=== PATIENT | male | born 1960 | race Caucasian/White ===

== ENCOUNTER 2016-08-24 06:33 | Emergency (ER) | payer OTHER ==
[~2016-08-24] VITALS: Ht 180.3 cm; Wt 86.4 kg
[~2016-08-24 06:33] MED LIST: ASPI-628 PO; ATRV10T PO; CLOP75TA28 PO; NITR0.4T SL
[2016-08-24 06:45] VITALS: BP 145/64; PULSE 45; RESP 12; O2SAT 100
--- NOTE | 2016-08-24 06:56 | ED.REPORT ---
HPI-Back Pain 40 and Over Date of Service Aug 24, 2016 ED Provider: Frank Philip DO Patient is a 56 year old male with a history of CAD with stent placement, mild spinal stenosis and lumbar radiculopathy who presents to the ED via EMS due to back pain onset 0200 this morning. Associated symptoms include pain that radiates into his right leg, numbness in his toes, chills, diaphoresis, lightheadedness, nausea and dizziness since yesterday. He denies fever, weakness , chest pain, shortness of breath, abdominal pain, headache or urinary symptoms. Patient describes the pain as sharp and throbbing and rates the pain as a 10/10. He describes the leg pain as dull. The patient reports that he tried using heat but it worsened his symptoms. He states that he has never experienced these symptoms before. Patient denies any recent traumas or falls. Nursing Notes Stated Complaint: LOW BACK PAIN/DIZZY Chief Complaint: Back Pain or Injury Nursing Notes Reviewed: Yes Allergies: Coded Allergies: No Known Allergies (Unverified , 08/24/16) Scheduled Aspirin (Aspir 81) 81 Mg Tablet.dr 81 MG PO DAILY Atorvastatin (Lipitor) 10 Mg Tab 20 MG PO DAILY Clopidogrel (Clopidogrel) 75 Mg Tablet 75 MG PO DAILY Metoprolol Tartrate (Metoprolol Tartrate) 25 Mg Tablet 12.5 MG PO BID Scheduled PRN Cyclobenzaprine (Cyclobenzaprine) 10 Mg Tablet 10 MG PO TID PRN PRN Spasm Nitroglycerin SL (Nitrostat) 0.4 Mg Tab.subl 0.4 MG SL Q5MIN PRN PRN For Chest Pain Zolpidem (Ambien) 10 Mg Tablet 10 MG PO HS PRN PRN For Insomnia half tab for sleep oxyCODONE-Acetaminophen 5-325 mg (oxyCODONE-Acetaminophen 5-325 mg) 1 Each Tablet 2 TAB PO Q6H PRN PRN For Pain General Time Seen by MD: 06:45 Chief Complaint Back pain Hx Obtained From: Patient Arrived By: Ambulance Sudden in Onset?: Yes Onset Occurred: 5 - 8 hours ago Symptom Duration: Since onset Caused by: Spontaneous/no mechanism Location: : Perispinal lumbar Quality: Sharp, Throbbing Radiation: : Right leg above knee Severity: Current: Pain level 10 out of 10 Associated with: Reports: Nausea, Denies: Fever Recent Healthcare: No recent doctor visit, No recent hospitalization Similar Sx Previous: No Past Medical History Past Medical History dyslipidemia stent placement spinal stenosis lumbar radiculopathy Reports: Coronary artery disease Past Surgical History heart catheterization Smoking History Never Smoker Social History Alcohol Use: "Social" Drug Use: Denies drug use Other Social History: Good social support, Ambulatory Status Independent Review of Systems Constitutional: Reports: Chills, Denies: Fever Respiratory: Denies: Non-productive cough, Pleuritic pain, Shortness of breath Cardiovascular: Denies: Chest pain GI: Reports: Nausea, Denies: Abdominal pain Male: Denies Dysuria, Denies Hematuria, Denies Incontinence Musculoskeletal: Reports: Back pain, Extremity pain (right leg) Neurologic: Reports: Dizziness, Lightheaded, Numbness (in his toes), Spinning sensation, Denies: Headache, Problem walking, Weakness Complete sys rev & neg: except as marked. Skin: Reports Diaphoresis, Denies Rash Physical Exam Initial Vital Signs Vital Signs (First) Date Time Temp Pulse Resp B/P Pulse Ox O2 Delivery O2 Flow Rate FiO2 08/24/16 06:45 36.9 45 12 145/64 100 Room Air Initial VS: Reviewed General/Constitutional: Awake, Alert Respiratory / Chest: Atraumatic, Breath sounds NL, Breath sounds = bilat, No respiratory distress Cardiovascular: Regular rhythm, Heart sounds NL, No murmurs Heart Rate / Rhythm: Positive: Bradycardia Abdomen: Atraumatic, Soft, Non-tender Back: Atraumatic, Full range of motion, No midline vertebral tend, Straight leg raise neg, No CVA tenderness pain at the right si joint L4/L5 distribution Neurologic: Oriented X3, Speech NL, No motor deficits, No sensory deficits Lower Extremity / Pelvis / MS: Atraumatic, Full range of motion bilateral numbness in the medial calves Skin: Atraumatic, Color NL, No rash, Warm, Dry Head / Eyes: Atraumatic, Normocephalic, PERRL, EOMI ENT: Atraumatic, Airway patent, Mucous membranes moist Psychiatric: Affect NL, Mood NL Interpretation & Diagnostics Interpretation & Diagnostics: LUMBAR MRI: IMPRESSION: 1. Multilevel degenerative disease. 2. Multilevel facet arthropathy. 3. No central stenosis. 4. Mild bilateral L2-L3, L4-L5 and L5-S1 neural foraminal narrowing. 5. L4-L5 and L5-S1 disc annulus fissures. 6. No neural impingement. Dictated by: Mary Gutierrez MD, PhD on 08/24/2016 at 11:45 Approved by: Mary Gutierrez MD, PhD on 08/24/2016 at 11:49 Lab Results Interpretation Result Diagram: 08/24/16 0722 08/24/16 0722 Test 08/24/16 07:22 08/24/16 07:36 White Blood Count 6.6th/mm3 (3.8-10.1) Red Blood Count 4.65mil/mm3 (4.40-5.80) Hemoglobin 14.7g/dL (13.8-17.2) Hematocrit 40.6% (41.0-50.0) Mean Corpuscular Volume 87.3fL (81-100) Mean Corpuscular Hemoglobin 31.6pg (27.0-35.0) Mean Corpuscular Hemoglobin Concent 36.2% (32.0-37.0) Red Cell Distribution Width 11.6% (12.3-15.4) Platelet Count 221bil/L (150-400) Neutrophils (%) (Auto) 64.1% (40-74) Lymphocytes (%) (Auto) 30.5% (14-46) Monocytes (%) (Auto) 4.7% (4-12) Eosinophils (%) (Auto) 0.2% (0-5) Basophils (%) (Auto) 0.3% (0-3) Sodium Level 137mEq/L (134-144) Potassium Level 4.0mEq/L (3.5-5.2) Chloride Level 99mEq/L (97-108) Carbon Dioxide Level 25mmol/L (18-29) Blood Urea Nitrogen 21mg/dL (6-24) Creatinine 0.84mg/dL (0.76-1.27) Estimat Glomerular Filtration Rate 100mL/min (>59) Glucose Level 130mg/dL (60-99) Calcium Level 9.2mg/dL (8.5-10.1) Magnesium Level 1.9mg/dL (1.6-2.6) Total Bilirubin 0.5mg/dL (0.0-1.2) Aspartate Amino Transf (AST/SGOT) 21U/L (0-50) Alanine Aminotransferase (ALT/SGPT) 27U/L (0-44) Alkaline Phosphatase 88U/L (25-150) Troponin T 0.010ug/L (0.0-0.011) Total Protein 6.8g/dL (6.4-8.4) Albumin 4.2g/dL (3.4-5.0) Hold Urine Received (Received) ECG Interpretation ECG Interpretation: sinus bradycardia, rate [address] changes unchanged from previous EKG on 06/21/14 Time: 07:02 Interpreted by: ED physician X-Ray Chest Interpretation Chest Xray Interpretation: IMPRESSION: 1. No acute cardiopulmonary disease. Dictated by: Eleuterio Hernandez M.D. on 08/24/2016 at 8:51 Approved by: Eleuterio Hernandez M.D. on 08/24/2016 at 8:52 View: Portable, 1 view Interpretation / Wet Read by: Interpret - Radiologist X-Ray Interpretation Xray Interpretation: IMPRESSION: Lower lumbar spine disc degeneration, with normal overall bony alignment. Dictated by: Jose Costello M.D. on 08/24/2016 at 10:04 Approved by: Jose Costello M.D. on 08/24/2016 at 10:06 Interpretation / Wet Read by: Interpret - Radiologist Re-Eval/Medical Decision Med Decision/Clinical Course 56 yo male with h/o CAD presents with sudden onset LBP at 0200 this AM while urinating. Pain is at the R SI joint and radiates down his entire RLE in no real dermatomal pattern. Pain was not reproducible with palpation and bilat straight leg raise tests were negative. Pt was able to stand on his toes bilat but unable to stand on his R heel due to pain and ?weakness. He had subjective numness in and L5 distribution on the right. RLE pulses were palpatble and normal. Skin was warm and dry and there was no leg swelling. Pt has a remote history of LBP and 2005 Lumbar MRI was reviewed showing mild disk buldge at L4- L5 and L5-S1. Pt notes he has not had pain like this before and also that he does not take chronic pain meds. Pain was briefly controlled by fentanyl given by EMS en route. Here Toradol, Flexeril and Percocet 5/325 did not relieve his pain. Ativan was given for possible muscle spasm and anxiety but did not improve his symptoms. Urine dip was completely normal without blood or sign of infection. He had no abdominal pain and was nontender. Lumbar Xray showed significant disk height loss at L5-S1. Pt had severe pain while standing for xray and was completely unable to walk. He required multiple doses of IV Dilaudid to just start to take the edge off his pain. He had no fever or chills and VS showed only mild hypertension and his baseline bradycardia in the upper 40s/low 50s on his longstanding metroprolol dose. . WBC was normal. ACS was ruled out with normal EKG and negative troponin. Given his severe refractory pain and his inability to ambulate as well as the significant disk height loss at L5-S1 MRI was performed showing no neural impingement and L4-5 and L5S1 disc annulus fissures. I explained that we had ruled out dangerous causes for his pain and d/c'ed him home with Percocet and Flexeril with close followup with his PCP and parameters of when to return should his symptoms worsen. Source of Hx: Old records Re-Evaluation/Progress #1: Time of Eval: 07:45 Re-Evaluation/Progress Note: Patient rates the pain as a 7/10 now. Re-Evaluation/Progress #2: Time of Eval: 08:30 Re-Evaluation/Progress Note: Patient reports that the pain medication helped but he is now starting to feel sharp pain again. Re-Evaluation/Progress #3: Time of Eval: 09:14 Re-Evaluation/Progress Note: Discussed results and options for further evaluation. Patient insists on getting a lumbar X-ray Re-Evaluation/Progress #4: Time of Eval: 10:19 Re-Evaluation/Progress Note: Discussed X-ray results. Patient reports that he was unable to walk when trying to go to X-ray. Discussed plan for MRI. Re-Evaluation/Progress #5: Time of Eval: 12:41 Re-Evaluation/Progress Note: Discussed results and plan for discharge. The patient understands and agrees to the plan for discharge. All questions were addressed. Counseled Regarding: Diagnosis, Lab results, Need for follow-up, When/why to return to ED Discharge & Departure Impression: Primary Impression: Low back pain Chronicity: acute Back pain laterality: right Sciatica presence: with sciatica Sciatica laterality: sciatica of right side Qualified Code: M54.41 - Lumbago with sciatica, right side Ruled Out: Acute coronary syndrome, Pyelonephritis, Kidney stones, Spinal epidural abscess Disposition: Home Discharge Condition All VS Reviewed: Yes Patient Instructions: Lumbar Radiculopathy (ED), Acute Low Back Pain (ED) Additional Instructions: Thank you for trusting us with your care. All of your X-rays and the MRI were reassuring that there is not any significant pinched nerve. The MRI showed degeneration and fissures of the disc. This is most likely causing your pain. We've ruled out kidney stones, heart problems or an epidural abscess. You can take Percocet as prescribed for pain. Do not consume alcohol or drive while taking the pain medication. Do not combine with any Acetaminophen with the pain medication. If you want to supplement with Ibuprofen, you can take up to 800mg, 3x a day. Follow up with your primary care physician next week to discuss further treatment options. Please return to the emergency department if you develop any new or worsening symptoms including weakness, numbness, tingling or incontinence. Referrals: Eliezer Christensen MD (PCP) Scribe Attestation Portions of this note were transcribed by Linda Castro. I, Dr. Philip personally performed the history, physical exam and medical decision-making; I reviewed and confirmed the accuracy of the information in the transcribed note. Signed by: Linda Vela, 08/24/16 and 1250 copies to: Eliezer Christensen MD, Gary R DO Aug 24, 2016 06:56 Madelin Castro Aug 24, 2016 07:19
[2016-08-24] MEDS ORDERED: METO25TA6 PO (07:14)
[2016-08-24] MEDS ORDERED: ZLP10T PO (07:14)
[2016-08-24 07:15] VITALS: BP_SYST 144; BP_SYST 154; BP_DIAS 71; BP_DIAS 76; PULSE 46; PULSE 50
[2016-08-24] MEDS ORDERED: Ketorolac 15 mg/mL Inj IM ONE (07:15)
[2016-08-24 07:36] LABS: BASOPHILS % (AUTO) 0.3 % (0-3); EOSINOPHILS % (AUTO) 0.2 % (0-5); MONOCYTES % (AUTO) 4.7 % (4-12); Mean Corpuscular Hemoglobin 31.6 pg (27.0-35.0); Mean Corpuscular Volume 87.3 fL (81-100); NEUTROPHILS % (AUTO) 64.1 % (40-74); Platelet Count 221 bil/L (150-400)
[2016-08-24] MEDS ORDERED: oxyCODONE-Acetamin 10-325 mg Tablet PO ONE (07:55)
[2016-08-24 07:59] LABS: TROPONIN T 0.01 ug/L (0.0-0.011)
[2016-08-24] MEDS ORDERED: oxyCODONE-Acetamin 5-325 mg Tablet PO ONE ×2 (08:01→08:05)
[2016-08-24 08:10] LABS: Magnesium 1.9 mg/dL (1.6-2.6)
--- NOTE | 2016-08-24 08:53 | DRSVH ---
PROCEDURE: X-RAY CHEST ONE VIEW, PORTABLE ([id number]) INDICATIONS: cp TECHNIQUE: One view of the chest was acquired. COMPARISON: [facility], , CHEST 1VW (PORTABLE), 06/21/2014, 15:22. FINDINGS: Surgical changes and devices: None. Lungs and pleura: No pleural effusions or pneumothorax. Lungs are clear. Mediastinum: Mediastinal contours appear normal. Heart size is normal. Bones and chest wall: No suspicious bony lesions. Overlying soft tissues appear unremarkable. IMPRESSION: 1. No acute cardiopulmonary disease. Dictated by: Eleuterio Hernandez M.D. on 08/24/2016 at 8:51 Approved by: Eleuterio Hernandez M.D. on 08/24/2016 at 8:52
[2016-08-24] MEDS ORDERED: HYDROmorphone 0.5 mg/0.5 mL iSecure Syringe IVPUSH ONE (09:20)
--- NOTE | 2016-08-24 10:07 | DRSVH ---
PROCEDURE: X-RAY LUMBAR SPINE, 2 OR 3 VIEW INDICATIONS: 56 year-old male with acute low back pain, without known trauma. TECHNIQUE: 3 views of the lumbar spine were acquired. COMPARISON: None. FINDINGS: Bones: 5 [id number]-powyiur vertebrae are present. There is normal bony alignment. No vertebral body c ompression fractures. There is L5-S1 degenerative disc narrowing. No suspicious bony lesions. Soft tissues: Overlying bowel gas pattern is normal. No suspicious soft tissue calcifications. IMPRESSION: Lower lumbar spine disc degeneration, with normal overall bony alignment. Dictated by: Jose Costello M.D. on 08/24/2016 at 10:04 Approved by: Jose Costello M.D. on 08/24/2016 at 10:06
[2016-08-24 10:23] VITALS: BP 133/56; PULSE 49; O2SAT 97
[2016-08-24] MEDS: HYDROmorphone 0.5 mg/0.5 mL iSecure Syringe IVPUSH PRN ×2 (10:45→11:04)
[2016-08-24] MEDS ORDERED: LORazepam 0.5 mg Tablet PO ONE (10:50)
--- NOTE | 2016-08-24 11:51 | DRSVH ---
PROCEDURE: MRI LUMBAR SPINE WITHOUT CONTRAST ([id number]) INDICATIONS: Acute RLE pain and weakness, pt unable to stand TECHNIQUE: Noncontrast sagittal T1 spin echo and T2 fast echo, sagittal STIR, axial T1 and T2 fast spin echo thr ough the lumbar spine. In cases with scoliosis, additional coronal T2 fast spin echo may be performe d. COMPARISON: [facility], CR, XR LUMBAR SPINE 2 OR 3VW, 08/24/2016, 9:35. FINDINGS: Image quality: Excellent. Alignment and Curvature: There is normal bony alignment. There is mild straightening of the lumbar s pine curvature. Bone Marrow: Mild reactive endplate changes noted adjacent to the L5-S1 disc. No acute vertebral body compression fractures. Spinal Cord: Conus medullaris terminates at the L1 level. Visualized cord demonstrates normal signa l and size. Paraspinous Soft Tissues: No paravertebral masses. L1-L2: Normal appearance. L2-L3: Loss of the signal. No central stenosis. Mild bilateral facet hypertrophy. Mild bilateral neur al foraminal narrowing secondary to disc disease and facet hypertrophy. No neural impingement. L3-L4: Disc has a normal appearance. Mild bilateral facet hypertrophy. No central stenosis. No neural foraminal narrowing. No neural impingement. L4-L5: Loss of disc signal. Mild, diffuse disc bulge. Mild bilateral facet hypertrophy. No central st enosis. Mild bilateral neural foraminal narrowing secondary to disc and facet disease. There is a foc al high intensity zone in the left foraminal annulus compatible with the fissure. No neural impingeme nt. L5-S1: Loss of disc signal and height. Mild, diffuse disc bulge with small central disc protrusion campos perimposed on diffuse disc bulge. Mild bilateral facet hypertrophy. No central stenosis. Mild bilater al neural foraminal narrowing secondary to disc disease and facet hypertrophy. There is a focal high intensity zone in the posterior annulus compatible with the fissure. No neural impingement or IMPRESSION: 1. Multilevel degenerative disease. 2. Multilevel facet arthropathy. 3. No central stenosis. 4. Mild bilateral L2-L3, L4-L5 and L5-S1 neural foraminal narrowing. 5. L4-L5 and L5-S1 disc annulus fissures. 6. No neural impingement. Dictated by: Mary Gutierrez MD, PhD on 08/24/2016 at 11:45 Approved by: Mary Gutierrez MD, PhD on 08/24/2016 at 11:49
[2016-08-24] MEDS ORDERED: HYDROmorphone 1 mg/mL Inj IVPUSH ONE (12:30)
[2016-08-24] MEDS ORDERED: OXYC1TAB24 PO (13:04)
[2016-08-24] MEDS ORDERED: CYCL10TA9 PO (13:04)
[2016-08-24 13:17] VITALS: BP 125/62; PULSE 47; RESP 12; O2SAT 97
== END 2016-08-24 13:18 | disposition home or self-care (01) ==
LOC: EDBD 06:33 → SED 06:33
DX: M54.41 Lumbago with sciatica, right side (principal); R20.0 Anesthesia of skin; R68.83 Chills (without fever); R61 Generalized hyperhidrosis; R42 Dizziness and giddiness; R11.0 Nausea; E78.5 Hyperlipidemia, unspecified; I25.10 Atherosclerotic heart disease of native coronary artery without angina pectoris; Z79.82 Long term (current) use of aspirin; Z95.5 Presence of coronary angioplasty implant and graft
CPT/HCPCS: 36415; 71010; 72100; 72148; 80053; 83735; 84484; 85025; 93005; 96372; 96374; 96376; 99285; J1170; J1885